=== PATIENT | male | born 1995 | race Caucasian/White ===

== ENCOUNTER 2020-01-03 19:04 | Emergency (ER) | payer OTHER, SELFPAY ==
--- NOTE | 2020-01-03 23:26 | RAD ---
LEFT HAND 3 VIEWS: Date: 01/03/2020 No fracture or opaque foreign body was seen. The fifth metacarpal and adjacent carpal bones all appea red intact. There does appear to have been an old tiny avulsion from the ulnar styloid. IMPRESSION: No acute bony finding. POS: HOME
== END 2020-01-03 21:11 | disposition home or self-care (01) ==
LOC: BURERS 19:04
DX: S60.222A Contusion of left hand, initial encounter (principal); M77.9 Enthesopathy, unspecified; E10.9 Type 1 diabetes mellitus without complications; F17.210 Nicotine dependence, cigarettes, uncomplicated; F17.290 Nicotine dependence, other tobacco product, uncomplicated; W20.8XXA Other cause of strike by thrown, projected or falling object, initial encounter; Y99.0 Civilian activity done for income or pay